=== PATIENT | female | born 1995 | race Caucasian/White ===

== ENCOUNTER 2016-07-12 01:12 | Emergency (ER) | payer BC ==
[~2016-07-12 01:12] MED LIST: ALBUTEROL17 GM; ALLERGY MEDICATION
[2016-07-12] MEDS ORDERED: NORCO 5-325 TA1 EACH PO (02:42)
== END 2016-07-12 03:20 ==
LOC: EDMED 01:12
PROC: 2W3SX1Z Immobilization of Right Foot using Splint (ICD-10-PCS; principal; 2016-07-12)
DX: S92.411A Displaced fracture of proximal phalanx of right great toe, initial encounter for closed fracture (principal); W01.0XXA Fall on same level from slipping, tripping and stumbling without subsequent striking against object, initial encounter